=== PATIENT | female | born 1980 | race Caucasian/White ===

== ENCOUNTER 2016-09-13 08:47 | Emergency (ER) | payer OTHER ==
[2016-09-13 09:05] VITALS: BP 124/66; PULSE 108; TEMP 98; BMI 33.6
[2016-09-13] MEDS ORDERED: ACETAMINOPHEN 500 MG TABLET (FP) ONE (09:46)
--- NOTE | 2016-09-13 10:29 | PDOC ---
History of Present Illness - General Chief Complaint: Sore Throat Stated Complaint: SORE THROAT, FLU LIKE SYMPTOMS, 36 WKS PREG Time Seen by Provider: 09/13/16 09:20 History Source: Patient Exam Limitations: No Limitations - History of Present Illness Initial Comments: 09/13/16 10:25 Chief complaint: Sore throat generalized tiredness, headache History of present illness: Patient is a 35-year-old female 36 weeks 3 para 2 here today complaining of sore throat for the last couple of days. Patient denies any fever, nasal congestion, cough, nausea, vomiting, or diarrhea or any difficulty swallowing or breathing. 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 Patient had did not get her influenza vaccine. Patient denies any shortness of breath. Patient did not get influenza vaccine. She also complaining of headache presently a 5 out of 10 and aching in nature 09/13/16 10:29 Timing/Duration: getting worse Severity: mild Associated Symptoms: reports: headaches, other (sore throat ). denies: fever/ chills Past History - Past Medical History Allergies/Adverse Reactions: Allergies Allergy/AdvReac Type Severity Reaction Status Date / Time No Known Allergies Allergy Verified 09/13/16 09:02 Home Medications: Ambulatory Orders Penicillin V Potassium [Pen Vee K -] 500 mg PO Q6H #40 tablet MDD 4 09/13/16 Other medical history: none - Psycho/Social/Smoking Cessation Hx Anxiety: No Suicidal Ideation: No Smoking History: Never smoked Information on smoking cessation initiated: No Hx Alcohol Use: No Drug/Substance Use Hx: No Substance Use Type: None Review of Systems - Review of Systems Able to Perform ROS?: Yes Constitutional: No: Symptoms Reported HEENTM: Yes: Throat Pain Respiratory: No: Symptoms reported Cardiac (ROS): No: Symptoms Reported ABD/GI: No: Symptoms Reported : No: Symptoms Reported Musculoskeletal: No: Symptoms Reported Integumentary: No: Symptoms Reported Neurological: Yes: Headache *Physical Exam - Vital Signs Last Vital Signs Temp Pulse Resp BP Pulse Ox 98.0 F 108 H 18 124/66 100 09/13/16 09:03 09/13/16 09:03 09/13/16 09:03 09/13/16 09:03 09/13/16 09:03 - Physical Exam General Appearance: Yes: Appropriately Dressed HEENT: positive: EOMI, MICHAEL, TMs Normal, Pharyngeal Erythema. negative: Tonsillar Exudate, Tonsillar Erythema, Nasal Congestion, Rhinorrhea, Sinus Tenderness Neck: negative: Lymphadenopathy (R), Lymphadenopathy (L) Respiratory/Chest: positive: Lungs Clear, Normal Breath Sounds. 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 Patient denies any fever , nasal congestion, cough, nausea, vomiting, or diarrhea or any difficulty swallowing or breathing. 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 Patient had did not get her influenza vaccine. Patient denies any shortness of breath. Patient did not get influenza vaccine. She also complaining of headache. presently a 5 out of 10. rule Out strep throat Rule out influenza A or B PLAN: throat C & S + for beta hemolytic strep group A influenza A & B rapid negative tylenol 1 gm po now pen vk 500 mg q 6 hr for 10 days 09/13/16 10:28 *DC/Admit/Observation/Transfer Diagnosis at time of Disposition: Acute recurrent streptococcal tonsillitis - Discharge Dispostion Disposition: HOME Condition at time of disposition: Stable - Patient Instructions Additional Instructions: Drink A lot a fluids and rest Throw out toothbrush detention through treatment and getting And at and of treatment Return to emergency room if any difficulty breathing or swallowing. Or any new symptoms develop Take acetaminophen as needed as directed by automatic seamer for headache or pain or fever Follow-up with your primary care provider within the next few days Your influenza A and B rapid test with negative in your throat culture was positive for strep beta hemolytic group a Patient voiced understanding of discharge instructions and all questions were answered - Post Discharge Activity Work/School Note: Back to Work
== END 2016-09-13 10:33 | disposition home or self-care (01) ==
LOC: JER 08:47 → JERFT 08:47
DX: O99.89 Other specified diseases and conditions complicating pregnancy, childbirth and the puerperium (principal); J02.0 Streptococcal pharyngitis; B95.0 Streptococcus, group A, as the cause of diseases classified elsewhere; Z3A.36 36 weeks gestation of pregnancy
CPT/HCPCS: 87070; 87077; 87430; 87804; 99281-25

== ENCOUNTER 2016-10-17 21:05 | Inpatient (IN) | payer OTHER ==
[2016-10-17] MEDS: ELECTROLYTE-148 SOLN 1,000 ML IV SCH (21:55)
[2016-10-17] MEDS ORDERED: BUTORPHANOL TARTRATE 1 MG/ML VIAL IVPB ONE (21:55)
[2016-10-17] MEDS ORDERED: PROMETHAZINE HCL 25 MG/1 ML VIAL IVPUSH ONE (21:55)
[2016-10-17] MEDS ORDERED: AMPICILLIN - 2 GM in SODIUM CHLORIDE 100 ML IVPB ONE (21:57)
--- NOTE | 2016-10-17 22:06 | HP ---
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 Cardiovascular: No: AFIB, HTN, CO Pulmonary: No: Asthma Gastrointestinal: No: Constipation, GERD Hepatobiliary: No: Hepatitis B, Hepatitis C ...: 3 ...Para: 2 ...Term: 2 ...: 0 ...Spon : 0 ...Induced : 0 ...Multiple Gestation: 0 ...EDC by Dates: 10/12/16 Heme/Onc: No: Anemia Infectious Disease: No: HIV, MRSA, STD's Psych: No: Anxiety, Bipolar, Depression Endocrine: No: Diabetes Mellitus, Hyperthyroidism, Hypothyroidism - Past Surgical History Past Surgical History: Yes: None Hx Myomectomy: No Hx Transabdominal Cerclage: No - Smoking History Smoking history: Never smoked - Alcohol/Substance Use Hx Alcohol Use: No - Social History ADL: Independent History of Recent Travel: No Home Medications - Allergies Allergies/Adverse Reactions: Allergies Allergy/AdvReac Type Severity Reaction Status Date / Time No Known Allergies Allergy Verified 10/14/16 20:53 Review of Systems - Review of Systems Constitutional: reports: No Symptoms Eyes: reports: No Symptoms HENT: reports: No Symptoms Neck: reports: No Symptoms Cardiovascular: reports: No Symptoms Respiratory: reports: No Symptoms Gastrointestinal: reports: No Symptoms Genitourinary: reports: No Symptoms Breasts: reports: No Symptoms Reported Musculoskeletal: reports: No Symptoms Integumentary: reports: No Symptoms Neurological: reports: No Symptoms Endocrine: reports: No Symptoms Hematology/Lymphatic: reports: No Symptoms Psychiatric: reports: No Symptoms Physical Exam - Maternity Constitutional: Yes: Well Nourished, No Distress, Calm Eyes: Yes: Conjunctiva Clear, EOM Intact HENT: Yes: Atraumatic, Normocephalic Neck: Yes: Supple, Trachea Midline Cardiovascular: Yes: Regular Rate and Rhythm Lungs: Clear to auscultation - Abdominal Exam/OB Number of Fetuses: Single Presentation: Vertex Contractions: Yes Regularity: Regular Intensity: Mild/Mod Monitor Mode: External Heart Rate (range): 155 Category: I Accelerations: Uniform Decelerations: None - Vaginal Exam/OB Speculum Exam: Yes Dilatation (cm): 4 Effacement (%): 70 Amniotic Membrane Status: Intact Presentation: Vertex/Position Station: -2 - Physical Exam Musculoskeletal: Yes: WNL Extremities: Yes: WNL Integumentary: Yes: WNL ...Motor Strength: WNL Hemorrhage Risk Assessment - Risk Factors Medium Risk Factors: Yes: EFW greater than 4000g Risk Score: 1 Risk Level: Medium Risk Problem List - Problems (1) Labor established Code(s): HUZ9925 - (2) Term Code(s): Z34.80 - ENCOUNTER FOR SUPRVSN OF NORMAL , UNSP TRIMESTER Assessment/Plan 35 y/o with SIUP at 40.5 weeks gestation here in labor - FHTS cat 1 - labor, for expectant management - concern for LGA baby - EFW on ultrasound on 10/14 showed EFW 4683 gm - pt aware , discussed in detail risk of shoulder dystocia and possible sequelae. Pt desires to attempt - has h/o 9lb 6oz baby in past. - GBS positive, start ampicillin for prophylaxis
[2016-10-17 22:23] LABS: BASOPHIL 0.4 % (0-2.0); EOSINOPHIL 0.4 % (0-4.5); MCH 26.5 pg (25.7-33.7); MCHC 32.9 g/dl (32.0-36.0); MEAN CELL VOLUME 80.3 fl (80-96); MEAN PLT VOLUME 10.7 fl (7.5-11.1); NEUTROPHILS 73.7 % (42.8-82.8); PLATELET COUNT 194 K/MM3 (134-434); RDW 14.2 % (11.6-15.6); WHITE BLOOD COUNT 17.7 K/mm3 (4.0-10.0)
--- NOTE | 2016-10-17 22:35 | PN ---
Ante-Partal Exam - Subjective Subjective: Pt tolerating contractions Bleeding: No Headache: No Visual changes: No Right upper quadrant pain: No Pain (scale 1-10): 5 - Contractions Contractions: Yes Regularity: Regular Intensity: Moderate - Exam during Labor Heart Rate: 145 Category: I Monitor Accelerations: Present Monitor Decelerations: None Exam: Vaginal Dilatation (cm): 5 Effacement (%): 70 Amniotic Membrane Status: Ruptured (AROM for clear fluid at this examination) Presentation: Vertex Station: -1 - Assessment/Plan Assessment/Plan: 35 y/o P2 with SIUP at 40.5 weeks, labor, possible LGA baby - FHTS cat 1 - labor, AROM for clear fluid, for expectant management at this time - GBS positive, is on ampicillin for GBS PPX - anticipate
[2016-10-17 22:47] LABS: CALCIUM 8.7 mg/dL (8.5-10.1); CREATININE 0.5 mg/dL (0.55-1.02)
[2016-10-17 22:48] VITALS: BMI 33.7
[2016-10-18 01:00] LABS: INR 0.98 (0.82-1.09); PROTHROMBIN TIME (PATIENT) 10.8 SEC (9.98-11.88)
[2016-10-18 01:03] LABS: ACTIVATED PTT 27.7 SECONDS (26.9-34.4)
[2016-10-18] MEDS: AMPICILLIN - 1 GM in SODIUM CHLORIDE 100 ML IVPB SCH ×3 (01:57→09:54)
[2016-10-18] MEDS ORDERED: TUBERCULIN PPD 5 TU/0.1ML SYRINGE (IN PATIENT USE ONLY) ID ONE ×2 (04:14→09:00)
--- NOTE | 2016-10-18 04:18 | PN ---
Ante-Partal Exam - Subjective Subjective: Pt requesting epidural. Vital Signs: Vital Signs Temperature 98.2 F 10/18/16 01:00 Pulse Rate 123 H 10/18/16 01:00 Respiratory Rate 20 10/18/16 01:00 Blood Pressure 124/61 10/18/16 01:00 O2 Sat by Pulse Oximetry (%) Bleeding: Yes (consistent with bloody show) Bleeding Description: Mild Headache: No Visual changes: No Right upper quadrant pain: No - Contractions Contractions: Yes Regularity: Regular Intensity: Moderate Monitor Mode: External - Exam during Labor Heart Rate: 155 Variability: Moderate Category: I Monitor Accelerations: Present Monitor Decelerations: None Exam: Vaginal Dilatation (cm): 8.5 Effacement (%): 90 Amniotic Membrane Status: Ruptured Amniotic Fluid: Clear Presentation: Vertex Station: -1 - Assessment/Plan Assessment/Plan: 35 y/o with SIUP at 40.6 weeks, labor - FHTS cat 1 - admitted in labor, s/p AROM for clear fluid. To get epidural at this time, continue expectant management. - GBS positive, continue ampicillin per protcol
[2016-10-18] MEDS ORDERED: OXYTOCIN 15 UNITS/ LR 250 ML 250 ML IVPB SCH (04:30)
[2016-10-18] MEDS: FENTANYL/BUPIVACAINE/NS/PF - PCEA - 50 ML DISP.SYRIN EP SCH ×3 (05:00→12:00)
[2016-10-18] MEDS ORDERED: FENTANYL/BUPIVACAINE/NS/PF - PCEA - 50 ML DISP.SYRIN EP SCH (05:15)
[2016-10-18] MEDS: ELECTROLYTE-148 SOLN 1,000 ML IV SCH ×2 (05:23→09:14)
--- NOTE | 2016-10-18 07:57 | PN ---
Ante-Partal Exam - Subjective Subjective: Pt comfortable with epidural Vital Signs: Vital Signs Temperature 98.9 F 10/18/16 07:00 Pulse Rate 101 H 10/18/16 06:45 Respiratory Rate 20 10/18/16 06:45 Blood Pressure 98/51 10/18/16 06:45 O2 Sat by Pulse Oximetry (%) 99 10/18/16 07:40 Bleeding: Yes (consistent with bloody show) Bleeding Description: Mild Headache: No Visual changes: No Right upper quadrant pain: No Pain (scale 1-10): 1 - Contractions Contractions: Yes Regularity: Regular Intensity: Moderate Monitor Mode: External - Exam during Labor Heart Rate: 155 Variability: Moderate Category: I Monitor Accelerations: Present Monitor Decelerations: Variable (one isolated variable, spontaneously resolved) Exam: Vaginal Dilatation (cm): 9 Effacement (%): 90 Amniotic Membrane Status: Ruptured Amniotic Fluid: Clear Presentation: Vertex Station: -1 - Assessment/Plan Assessment/Plan: FHTS cat 1 Pt still 9cm dilated contractions have spaced to start pitocin continue ampicillin for GBS discussed with patient possible need for delivery if no further descent /dilation with pitocin
[2016-10-18] MEDS: D5W-LR W/ 20 UNITS OXYTOCIN 1,000 ML IV SCH ×2 (11:40→15:22)
[2016-10-18 11:52] LABS: ARTERIAL BLD GAS O2 SATURATION 6.5 % (90-98.9); ARTERIAL BLOOD GAS BASE EXCESS -12.7 meq/l (-2-2); ARTERIAL BLOOD GAS HCO3 21.9 meq/L (22-26)
--- NOTE | 2016-10-18 11:54 | PN ---
Delivery - Delivery Vaginal Delivery: No Problems Type of Anesthesia: Epidural Episiotomy/Laceration: 2nd degree EBL (cc): 350 Delivery, Single - Stages of Labor Date of Delivery: 10/18/16 Time of Delivery: 11:27 Date Placenta Delivered: 10/18/16 Time Placenta Delivered: 11:32 Placenta: Yes: Spontaneous - Condition of Napping Machine Operator/Wax Machine Operator Present: Yes Name: Paolo Parekh Gender: Female Weight: 8 lb 11 oz Position: Right, OP - 1 Minute Total Score: 6 5 Minutes Total Score: 8 10 Minutes Total Score: 8 - Zachary Feeding Plan Initial Plan: Elected not to breastfeed exclusively throughout hospitalization Remarks - Remarks Remarks: Normal of baby girl from ROP position double nuchal cord noted after delivery of baby head which was cut and reduced at perineum anterior shoulder (left) delivered with ease along with remainder of baby taken to warmer to be assessed by neonatology staff where baby received Apgars of 6/8/8 cord blood gasses collected placenta delivered with 3VC, and in tact, spontaneously 2nd degree laceration noted, repaired with 2-0 chromic suture EBL 350cc sponge and needle count correct after delivery mom stable baby to nursery for evaluation
[2016-10-18] MEDS ORDERED: oxyCODONE HCL 5 MG TABLET PO PRN (11:56)
[2016-10-18] MEDS ORDERED: ACETAMINOPHEN 325 MG TABLET (FP) PO PRN (11:56)
[2016-10-18] MEDS ORDERED: METHYLERGONOVINE MALEATE 0.2 MG/1 ML AMP IM PRN (11:56)
[2016-10-18] MEDS ORDERED: IBUPROFEN 600 MG TABLET (FP) PO PRN (11:56)
[2016-10-18] MEDS ORDERED: BENZOCAINE 20% 57 GM BOTTLE TP PRN (11:56)
[2016-10-18] MEDS ORDERED: WITCH HAZEL 50% (TUCKS) 40 PAD/JAR PAD TP PRN (11:56)
[2016-10-18] MEDS ORDERED: BISACODYL 10 MG SUPP.RECT RC PRN (11:56)
[2016-10-18] MEDS ORDERED: BENZOCAINE 28 GM HEMORRHOIDAL OINTMENT TP PRN (11:56)
[2016-10-18 11:57] LABS: LPM/O2% 21%; PT. ON O2? NO; TYPE OF O2 ROOM AIR
[2016-10-18 11:59] LABS: ARTERIAL BLOOD GAS pH 7.02 (7.35-7.45)
--- NOTE | 2016-10-19 07:02 | PN ---
Post Note - Post Date of Delivery: 10/18/16 Post Day: 1 Vital Signs: Vital Signs - 24 hr 10/18/16 10/18/16 10/18/16 07:15 07:40 07:45 Temperature Pulse Rate 106 H 111 H Respiratory 20 20 Rate Blood Pressure 103/53 75/43 O2 Sat by Pulse 99 Oximetry (%) 10/18/16 10/18/16 10/18/16 08:00 08:05 08:15 Temperature 98.3 F Pulse Rate 101 H 112 H Respiratory 20 20 Rate Blood Pressure 103/58 113/62 O2 Sat by Pulse Oximetry (%) 10/18/16 10/18/16 10/18/16 08:30 08:45 09:00 Temperature 98.3 F Pulse Rate 111 H 111 H Respiratory 20 20 Rate Blood Pressure 104/52 106/51 O2 Sat by Pulse Oximetry (%) 10/18/16 10/18/16 10/18/16 09:15 09:36 09:45 Temperature Pulse Rate 122 H 128 H 128 H Respiratory 20 20 20 Rate Blood Pressure 113/52 115/52 112/49 O2 Sat by Pulse 100 Oximetry (%) 10/18/16 10/18/16 10/18/16 10:00 10:15 10:30 Temperature 98.8 F Pulse Rate 145 H 165 H Respiratory 20 22 Rate Blood Pressure 113/59 96/49 O2 Sat by Pulse 100 Oximetry (%) 10/18/16 10/18/16 10/18/16 10:45 11:00 11:15 Temperature Pulse Rate 146 H 154 H 137 H Respiratory 20 22 22 Rate Blood Pressure 104/58 114/62 127/67 O2 Sat by Pulse 100 100 Oximetry (%) 10/18/16 10/18/16 10/18/16 11:26 11:45 12:00 Temperature Pulse Rate 163 H 105 H 100 H Respiratory 24 20 20 Rate Blood Pressure 120/60 118/53 O2 Sat by Pulse 100 100 100 Oximetry (%) 10/18/16 10/18/16 10/18/16 12:15 12:30 12:45 Temperature 98.2 F Pulse Rate 100 H 112 H Respiratory 20 20 Rate Blood Pressure 116/61 106/59 O2 Sat by Pulse 100 100 100 Oximetry (%) 10/18/16 10/18/16 10/18/16 13:00 14:24 15:21 Temperature 97.8 F Pulse Rate 106 H Respiratory 20 Rate Blood Pressure 131/56 O2 Sat by Pulse 100 100 Oximetry (%) 10/18/16 10/18/16 10/19/16 18:00 22:00 02:00 Temperature 98.2 F 99.1 F 97.9 F Pulse Rate 115 H 100 H 96 H Respiratory 20 20 18 Rate Blood Pressure 117/66 118/71 112/56 O2 Sat by Pulse Oximetry (%) 10/19/16 06:00 Temperature 98.1 F Pulse Rate 93 H Respiratory 18 Rate Blood Pressure 108/68 O2 Sat by Pulse Oximetry (%) Labs: Laboratory Results - last 24 hr 10/17/16 10/18/16 22:00 11:52 Puncture Site Md puncture ABG pH 7.02 L* ABG pCO2 at Pt Temp 90.0 H* ABG pO2 at Pt Temp 9.0 L* ABG HCO3 21.9 L ABG O2 Sat (Measured) 6.5 L* ABG O2 Content 1.4 L* ABG Base Excess -12.7 L* Fitz Test Not applicable O2 Delivery Device Room air Oxygen Flow Rate 21% RPR Titer Nonreactive - Subjective Subjective: No Complaints - Objective Afebrile: Yes Breast: Not engorged Abdomen: Soft, Non-tender Uterus: Fundus firm Vagina: Scant lochia Extremities: Non-tender - Assessment/Plan (1) Normal vaginal delivery Assessment: S/P Normal Plan: Routine Care
--- NOTE | 2016-10-19 07:08 | PN ---
Progress Note (short form) - Note Progress Note: ANESTHESIOLOGY 35F s/p dural puncture during epidural placement. Now c/o bilateral frontal headache. Denies audiovisual disturbances, N/V. Headache exacerbated by sitting up or standing and is completely resolved by lying completely flat. Alleviated by NSAIDs and tylenol and currently 4-5/10 and tolerable. Vital Signs Temperature 98.1 F 10/19/16 06:00 Pulse Rate 93 H 10/19/16 06:00 Respiratory Rate 18 10/19/16 06:00 Blood Pressure 108/68 10/19/16 06:00 O2 Sat by Pulse Oximetry (%) 100 10/18/16 15:21 Active Medications Acetaminophen (Tylenol -) 650 mg PO Q3H PRN PRN Reason: PAIN Last Admin: 10/19/16 06:22 Dose: 650 mg Benzocaine (Americaine Ointment -) 1 applic TP PRN PRN PRN Reason: PAIN Benzocaine (Americaine 20% Gilberts -) 1 spray TP PRN PRN PRN Reason: PAIN Bisacodyl (Dulcolax Suppository -) 10 mg RC PRN PRN PRN Reason: CONSTIPATION Diphtheria/Tetanus/Acell Pertussis (Boostrix -) 0.5 ml IM .ONCE ONE Stop: 10/19/16 10:01 Dextrose/Lactated Ringer's (Pitocin 20 Units In D5-Lr -) 1,000 mls @ 125 mls/ hr IV ASDIR ZOILA Last Admin: 10/18/16 15:22 Dose: 125 mls/hr Ibuprofen (Motrin -) 600 mg PO Q4H PRN PRN Reason: PAIN Last Admin: 10/19/16 06:22 Dose: 600 mg Methylergonovine Maleate (Methergine Injection -) 0.2 mg IM Q4H PRN PRN Reason: EXCESSIVE BLEEDING (L&D) Oxycodone HCl (Roxicodone -) 5 mg PO Q6H PRN PRN Reason: PAIN Multivit/Folic Acid/Iron ( Vitamins (Sjr) -) 1 tab PO DAILY ZOILA Senna/Docusate Sodium (Pericolace -) 2 tablet PO HS PRN PRN Reason: CONSTIPATION [place]/Glycerin (Tucks Pads -) 1 pad TP PRN PRN PRN Reason: PAIN Pt is s/p dural puncture now woth likely post dural puncture headahce. Somewhat alleviated by PO analgesics. Will hydrate, continue NSAIDs and caffeine. Pt instructed as such, understands and would like to continue conservative management at this time rather than perform epidural blood patch. Pt instructed to call anesthesiologist back if symptoms do not resolve or worsen and would like blood patch.
[2016-10-19] MEDS ORDERED: ACETAMINOPHEN 325 MG TABLET (FP) PO PRN (07:17)
[2016-10-19 08:33] LABS: BASOPHIL 0.5 % (0-2.0); EOSINOPHIL 0.7 % (0-4.5); MCH 26.4 pg (25.7-33.7); MCHC 32.6 g/dl (32.0-36.0); MEAN CELL VOLUME 81.2 fl (80-96); MEAN PLT VOLUME 9.7 fl (7.5-11.1); NEUTROPHILS 71.6 % (42.8-82.8); PLATELET COUNT 134 K/MM3 (134-434); RDW 14.2 % (11.6-15.6); WHITE BLOOD COUNT 17.6 K/mm3 (4.0-10.0)
[2016-10-19] MEDS: ACETAMINOPHEN/CAFFEINE/BUTALBITAL 1 TAB PO SCH ×4 (09:51→21:36)
[2016-10-19] MEDS: PRENATAL VITAMINS W/ FOLIC ACID TABLET (FP) PO SCH (09:54)
[2016-10-19] MEDS ORDERED: INFLUENZA VACCINE 45 MCG/0.5 ML (MDV 16-17) IM ONE (10:00)
[2016-10-19] MEDS ORDERED: DIPHTH,PERTUSS(ACELL),TET 0.5 ML DISP.SYRIN IM ONE (10:00)
[2016-10-19] MEDS ORDERED: INFLUENZA VACCINE 60 MCG/0.5 ML (P/F DISP.SYRIN 16-17) IM ONE (10:00)
[2016-10-19] MEDS ORDERED: SENNOSIDES/DOCUSATE COMBO (SENNA PLUS) TABLET (UD) PO PRN (22:00)
--- NOTE | 2016-10-20 00:16 | PN ---
Progress Note (short form) - Note Progress Note: called for assessment of patient's PDPH. Pat is S/p vaginal delivery with post dural puncture headache. Pat reports mostly neck tension and pain 5-6/10 with radiation to frontal head 4-5/10. The pain and tension relieves in supine position. Able to ambulate. Denies N/v or visual symptoms. Pat is AAOx3. walking in the hallway.VSS. Interested in Blood patch. Attempted blood patch, unsuccessful. Unable to find the epidural space. Pat c/o pain and discomfort in her back during the attempt. Will rather rest overnight and continue with Fioricet. Will follow up tomorrow for possible new attempt for blood patch if still interested.
[2016-10-20] MEDS: ACETAMINOPHEN/CAFFEINE/BUTALBITAL 1 TAB PO SCH ×3 (02:15→09:59)
--- NOTE | 2016-10-20 06:58 | DS ---
Physical Exam-INCIDENT COORDINATOR Vital Signs: Vital Signs Temperature 98.0 F 10/19/16 22:00 Pulse Rate 73 10/19/16 22:00 Respiratory Rate 18 10/19/16 22:00 Blood Pressure 134/74 10/19/16 22:00 O2 Sat by Pulse Oximetry (%) 100 10/18/16 15:21 Constitutional: Yes: Well Nourished Eyes: Yes: Conjunctiva Clear HENT: Yes: Atraumatic Neck: Yes: Supple Cardiovascular: Yes: Regular Rate and Rhythm Respiratory: Yes: Regular Gastrointestinal: Yes: Normal Bowel Sounds Pelvis: Yes: WNL Uterus: Yes: Firm ....Post : Yes: Uterus firm, Moderate lochia serosa Breast(s): Yes: WNL Neurological: Yes: Alert, Oriented ...Motor Strength: WNL Psychiatric: Yes: Alert, Oriented Labs: CBC, BMP 10/19/16 07:45 10/17/16 22:00 Delivery - Delivery Vaginal Delivery: No Problems Type of Anesthesia: Epidural Episiotomy/Laceration: 2nd degree EBL (cc): 350 Delivery, Single - Stages of Labor Date 1st Stage Initiatied: 10/18/16 Time 1st Stage Initiated: 22:00 Date 2nd Stage Initiated: 10/18/16 Time 2nd Stage Initiated: 10:30 Date of Delivery: 10/18/16 Time of Delivery: 11:27 Time Placenta Delivered: 11:32 Placenta: Yes: Spontaneous - Condition of Door Patcher/Legal Advisor Present: Yes Name: Paolo Parekh Gender: Female Weight: 8 lb 11 oz Position: Right, OP Total Hours ROM (Hrs/Mins): 12/57 - 1 Minute Total Score: 6 5 Minutes Total Score: 8 10 Minutes Total Score: 8 - Feeding Plan Initial Plan: Elected not to breastfeed exclusively throughout hospitalization Discharge Summary Reason For Visit: LABOR ADMIT Current Active Problems Labor established (Acute) Normal vaginal delivery (Acute) Term (Acute) Procedures: Principal: Normal spontaneous vaginal delivery Hospital Course: Routine care Condition: Good - Instructions Diet, Activity, Other Instructions: Regular diet No douching, no sexual intercourse x 6 weeks. Disposition: HOME
[2016-10-20] MEDS: PRENATAL VITAMINS W/ FOLIC ACID TABLET (FP) PO SCH (09:59)
[2016-10-20 10:13] VITALS: BP 112/71; PULSE 80; TEMP 97.6
== END 2016-10-20 13:40 | disposition home or self-care (01) | DRG 560 ==
LOC: JLDR 21:05 → J3W 10-18 15:23
PROVIDERS: ADMIT Obstetrics & Gynecology; ATTEND Obstetrics & Gynecology
PROC: 10E0XZZ Delivery of Products of Conception, External Approach (ICD-10-PCS; principal; 2016-10-18)
PROC: 0KQM0ZZ Repair Perineum Muscle, Open Approach (ICD-10-PCS; 2016-10-18)
PROC: 3E0R3GC Introduction of Other Therapeutic Substance into Spinal Canal, Percutaneous Approach (ICD-10-PCS; 2016-10-20)
DX: O48.0 Post-term pregnancy (principal); O70.1 Second degree perineal laceration during delivery; Z3A.40 40 weeks gestation of pregnancy; Z37.0 Single live birth; O89.4 Spinal and epidural anesthesia-induced headache during the puerperium
CPT/HCPCS: 36415; 36600; 59409; 80048; 82803; 85025; 85610; 85730; 86593; 86850; 86900; 86901; 90686; 90715; G0008

== ENCOUNTER 2016-12-26 05:26 | Day surgery (SDC) | payer OTHER ==
[2016-12-21 15:00] VITALS: BMI 29.8
[2016-12-26] MEDS ORDERED: ROCURONIUM BROMIDE 50 MG/5 ML VIAL ONE (10:44)
[2016-12-26] MEDS ORDERED: MIDAZOLAM HCL 2 MG/2 ML SINGLE DOSE VIAL ONE (10:44)
[2016-12-26] MEDS ORDERED: IBUPROFEN 800 MG/8 ML IJ IVPB PRN (11:06)
--- NOTE | 2016-12-26 11:06 | HP ---
History & Physical Update - History History: No Change - Physical Physical: No Change - Assessment Assessment: No Change - Plan Plan: No Change ( female for voluntary sterilization - plan for laparoscopic bilateral salpingectomy)
[2016-12-26] MEDS ORDERED: LACTATED RINGERS SOLUTION 1,000 ML IV SCH ×2 (11:15→11:45)
[2016-12-26] MEDS ORDERED: oxyCODONE HCL 5 MG TABLET PO PRN (11:37)
[2016-12-26] MEDS ORDERED: ONDANSETRON 4 MG/2 ML VIAL IVPUSH PRN (11:37)
[2016-12-26] MEDS ORDERED: ceFAZolin SODIUM 1 GM VIAL IVPB ONE (11:45)
[2016-12-26] MEDS ORDERED: NEOSTIGMINE METHYLSULFATE 0.5 MG/ML - 10 ML MDV ONE (12:01)
--- NOTE | 2016-12-26 12:16 | OP ---
Operative Note - Note: Operative Date: 12/26/16 Pre-Operative Diagnosis: Elective sterilization Operation: Laparoscopic bilateral salpingectomy Post-Operative Diagnosis: Same as Pre-op Surgeon: Julieth Borrero Director Of Diversity And Inclusion: Maximino Jackson Anesthesiologist/EMT/PARAMEDIC: Inder Lopez Anesthesia: General Specimens Removed: Bilateral fallopian tubes Estimated Blood Loss (mls): 2 Fluid Volume Replaced (mls): 750 Operative Report Dictated: Yes
--- NOTE | 2016-12-26 12:18 | SURG ---
Surgery Bottler Note Bottler: Maximino Jackson PA-C Date of Service: 12/26/16 Diagnosis: Elective sterilization Procedure: Laparoscopic bilateral salpingectomy I was present for the entirety of the operative procedure. For further detail, please refer to operative report. Visit type - Case Type Case Type: Scheduled Admission - New patient This patient is new to me today: Yes Date on this admission: 12/26/16
[2016-12-26 13:58] LABS: MCH 25.8 pg (25.7-33.7); MCHC 31.7 g/dl (32.0-36.0); MEAN CELL VOLUME 81.2 fl (80-96); MEAN PLT VOLUME 7.9 fl (7.5-11.1); PLATELET COUNT 228 K/MM3 (134-434); WHITE BLOOD COUNT 7.6 K/mm3 (4.0-10.0)
[2016-12-26 14:21] VITALS: TEMP 97.6
[2016-12-26 17:21] VITALS: BP 114/58; PULSE 64
--- NOTE | 2016-12-27 14:03 | PATH ---
Surgical Pathology Report Patient Name: NUVIA BULLOCK [facility]. Rec. #: [id number] /Age/Gender: 1980 (Age: 36) / F Account: [id number] Location: [facility] SURGICAL Taken: 12/26/2016 Received: 12/26/2016 Reported: 12/27/2016 Physicians: Julieth Borrero M.D. Specimen(s) Received A: RIGHT FALLOPIAN TUBE B: LAFT FALLOPIAN TUBE Clinical History Multiparity Final Diagnosis A. FALLOPIAN TUBE, RIGHT, SALPINGECTOMY: FALLOPIAN TUBE WITH COMPLETE CROSS SECTION AND SMALL PARATUBAL CYST. B. FALLOPIAN TUBE, LEFT SALPINGECTOMY: FALLOPIAN TUBE WITH COMPLETE CROSS SECTION. Electronically Signed Dale Taylor M.D. Gross Description A. Received in formalin labeled "right fallopian tube" is a 7.5 cm in length fimbriated portion of fallopian tube. The outer surface is gutierrez purple and smooth. Sectioning reveals an unremarkable lumen. Tax Evaluator sections are submitted in 2 cassettes as follows: 1-fimbria; 2-cross sections of fallopian tube. B. Received in formalin labeled "left fallopian tube" is a 5.8 cm in length fimbriated portion of fallopian tube. The outer surface is gutierrez purple and smooth. Sectioning reveals unremarkable lumen. Tax Evaluator sections are submitted in 2 cassettes as follows: 1-fimbria; 2-cross sections of fallopian tube. 12/26/201612/26/2016
--- NOTE | 2016-12-29 20:55 | OP ---
DATE OF OPERATION: 12/26/2016 PREOPERATIVE DIAGNOSIS: Desire for permanent sterilization. POSTOPERATIVE DIAGNOSIS: Desire for permanent sterilization. PROCEDURE: Laparoscopic bilateral salpingectomy. SURGEON: Julieth Borrero MD WO[employer]AT FLANGER: CRAIG Pascual ANESTHESIA: General, administered by Dr. Ayden Villa. ESTIMATED BLOOD LOSS: 5 mL. COMPLICATIONS: None. SPECIMENS REMOVED: Bilateral fallopian tubes. FINDINGS: Normal uterus, bilateral tubes and ovaries. COUNTS: Sponge, needle, and instrument count was reported correct at the end of the case. BRIEF HISTORY AND PROCEDURE: Patient is a 36-year-old female who had been seen in the office with desire for a permanent sterilization procedure. Consent for laparoscopic bilateral salpingectomy was signed in the office and re-confirmed upon admission on December 26, 2016. The patient and the surgeon were mutually identified in the holding area. The patient was then taken back to the operating room, where she was given general anesthesia by Dr. Villa. She was then prepped and draped and placed in the dorsal lithotomy position in the usual sterile fashion. A Lombardi catheter was placed under sterile conditions and a hard time-out was performed. A 5 mm infraumbilical incision was created and a Veress needle as inserted into the abdominal cavity. The abdomen was insufflated with CO2 gas and then a 5mm trocar was inserted in the umbilical incision. The camera was placed inside the abdomen and then 2 bilateral lower quadrant ports were placed under direct visualization. Both ports were 5 mm in size. Next, the left fallopian tube was identified, elevated, and traced to its fimbriated end. It was then dissected off its attachments to the ovary, mesosalpinx, and the uterus using the LigaSure device. It was then removed from the 5-mm trocar site under direct visualization. The same was repeated with the right fallopian tube. There was a minimal amount of bleeding on the right surgical site, which was controlled with cautery using the LigaSure device. Excellent hemostasis was achieved. No other intraabdominal abnormalities were noted and then all instruments were removed under direct visualization from the abdomen. All trocars were removed. The abdomen was desufflated. The skin was reapproximated using 4-0 Biosyn suture and skin glue. The Lombardi catheter was removed. Sponge, needle and instrument count was reported to be correct. The patient tolerated the procedure well, is recovering in stable condition in the PACU at the end of the procedure. JULIETH BORRERO DO /[id number] MTDD
== END 2016-12-26 17:10 | disposition home or self-care (01) ==
LOC: JASU-SURG 05:26
PROVIDERS: ATTEND Obstetrics & Gynecology
PROC: 0UB74ZZ Excision of Bilateral Fallopian Tubes, Percutaneous Endoscopic Approach (ICD-10-PCS; principal; 2016-12-26 11:00)
DX: Z30.2 Encounter for sterilization (principal)
CPT/HCPCS: 36415; 84703; 85027; 88302-TC; 94760

== ENCOUNTER 2021-02-06 10:44 | Emergency (ER) | payer OTHER ==
[2021-02-06 11:15] VITALS: BP 108/71; PULSE 76; TEMP 97.7; BMI 26.6
[2021-02-06] MEDS ORDERED: KETOROLAC TROMETHAMINE 30 MG/1 ML VIAL IM ONE (11:28)
[2021-02-06] MEDS ORDERED: KETOROLAC TROMETHAMINE 30 MG/1 ML VIAL ONE (11:32)
== END 2021-02-06 11:37 | disposition home or self-care (01) ==
LOC: JER 10:44 → MERGE 10:44 → JER 11:37
PROC: 3E0233Z Introduction of Anti-inflammatory into Muscle, Percutaneous Approach (ICD-10-PCS; principal; 2021-02-06)
DX: M79.602 Pain in left arm (principal)
CPT/HCPCS: 99284-25

== ENCOUNTER 2022-01-04 08:48 | Emergency (ER) | payer BC, OTHER ==
[2022-01-04 09:10] VITALS: BP 96/63; PULSE 71; TEMP 97.7; BMI 29.0
[2022-01-04 12:25] LABS: THROAT:GRP A STREP NOT DETECTED (NOTDETECTED)
[2022-01-05 15:08] LABS: SARS-CoV-2 NAA Not Detected (Not Detected)
== END 2022-01-04 11:29 | disposition home or self-care (01) ==
LOC: JER 08:48
DX: J02.9 Acute pharyngitis, unspecified (principal)
CPT/HCPCS: 87651; 99283-25; C9803-CS; U0003; U0005